=== PATIENT | male | born 1990 | race Two or more races ===

== ENCOUNTER 2023-05-24 08:55 | Emergency (ER) | payer SELFPAY ==
[~2023-05-24] VITALS: Ht 167.6 cm; Wt 72.6 kg
[2023-05-24] MEDS ORDERED: ONDANSETRON ODT 4 MG TAB PO ONE (09:45)
[2023-05-24] MEDS ORDERED: MECLIZINE HCL 25 MG TAB PO ONE (09:45)
[2023-05-24 10:02] LABS: Alanine Aminotransferase 24 U/L (7-40); Alkaline Phosphatase 68 U/L (46-116); Anion Gap 9 (5-15); Aspartate Aminotransferase 23 U/L (13-40); BUN/Creatinine Ratio 9.7 (10.0-20.0); Blood Urea Nitrogen 9 mg/dL (9-23); Calcium 10.5 mg/dL (8.5-10.1); Carbon Dioxide 25 mmol/L (20-30); Chloride 103 mmol/L (98-107); Glucose 120 mg/dL (74-106); Potassium 4.3 mmol/L (3.5-5.1); Sodium 137 mmol/L (136-145)
[2023-05-24 10:03] LABS: Total Protein 7.6 g/dL (5.7-8.2)
[2023-05-24 10:11] LABS: Basophils # (auto) 0 10 ^3/uL (0-0.2); Basophils % (auto) 0.3 % (0.0-2.0); Eosinophils # (auto) 0 10 ^3/uL (0-0.8); Eosinophils % (auto) 0.2 % (0.0-7.0); Hematocrit 50.3 % (41.0-53.0); Hemoglobin 17.4 g/dL (13.5-17.5); Lymphocytes # (auto) 1.2 10 ^3/uL (0.4-5.4); Lymphocytes % (auto) 12.8 % (10.0-50.0); Mean Corpuscular Hemoglobin 30.2 pg (28.0-32.0); Mean Corpuscular Hgb Conc. 34.5 g/dL (32.0-36.0); Mean Corpuscular Volume 87.6 fL (80.0-100.0); Monocytes # (auto) 0.4 10 ^3/uL (0-1.3); Monocytes % (auto) 4.5 % (0.0-12.0); Neutrophils # (auto) 7.8 10 ^3/uL (1.6-8.6); Neutrophils % (auto) 82.2 % (37.0-80.0); Nucleated Red Blood Cells % 0.2 %; Red Blood Cells 5.75 10^6/uL (4.5-5.90); Red Cell Distribution Width 12.6 % (11.8-14.3); White Blood Cell 9.5 10^3/uL (4.4-10.8)
[2023-05-24] MEDS ORDERED: MECL1TAB42 PO (10:16)
[2023-05-24] MEDS ORDERED: ZOFR4T PO (10:16)
[2023-05-24 10:18] LABS: Urine Bacteria NONE SEEN /hpf (None Seen); Urine Blood 1+ /uL (Negative); Urine Clarity Clear (Clear); Urine Color Yellow (Yellow); Urine Mucus FEW (None Seen); Urine Protein, UAD TRACE (Negative); Urine Specific Gravity 1.024 (1.001-1.035); Urine Urobilinogen Normal (Negative); Urine WBC 1 /hpf (0 - 3)
[2023-05-24 10:31] LABS: INR 1.08 (0.9-1.15); Partial Thromboplastin Time 29.4 SEC (24.5-34.5); Prothrombin Time 11.3 sec (9.3-11.8)
[2023-05-24 11:30] VITALS: BP 139/66; PULSE 78; RESP 16; TEMP 98.4; O2SAT 98
== END 2023-05-24 11:53 | disposition home or self-care (01) ==
LOC: ER 08:55
DX: R42 Dizziness and giddiness (principal); Z86.2 Personal history of diseases of the blood and blood-forming organs and certain disorders involving the immune mechanism
CPT/HCPCS: 36415; 71046; 80053; 81001; 82962; 84484; 85025; 85379; 85610; 85730; 93005; 99285; J8597; Q0162